=== PATIENT | male | born 1940 | race Caucasian/White ===

== ENCOUNTER → 2017-06-11 11:49 | Day surgery (SDC) | payer MEDICARE, BC ==
[~2017-06-11 11:49] MED LIST: Diazepam TAB(*) 5 MG ONE; Lidocaine 1% INJ* 10 MG/ML 30 ML SDV ONE; Midazolam* 1 MG/ML 10 ML VIAL (10 MG) ONE; ceFAZolin 2 GM in NS 0.9% 100 ml IVPB ONE; ceFAZolin VIAL 1 GM in NS *SYRINGE * * 10 ML ONE; fentaNYL* 50 MCG/ML 2 ML VIAL (100 MCG VIAL) ONE
[2017-06-11 15:08] VITALS: BP 146/77
--- NOTE | 2017-06-12 23:01 | OP ---
CC: Dr. Villagomez * DATE OF OPERATION: 06/11/17 - [facility] CATH DATE OF : 36 SURGEON: Cali Alcala MD ANESTHESIA: Local anesthesia with conscious sedation. PRE-OP DIAGNOSES: Cardiomyopathy, ICD at elective replacement indicator. POST-OP DIAGNOSES: Cardiomyopathy, ICD at elective replacement indicator. OPERATIVE PROCEDURE: Single-chamber ICD generator change. ESTIMATED BLOOD LOSS: Nil. COMPLICATIONS: None. INDICATIONS: The patient is a 77-year-old gentleman with a history of cardiomyopathy, history of ventricular tachy-cardia. He is status post pacemaker and ICD implantation in the past. He has reached elective replacement indicator, generator change is recommended. DESCRIPTION OF PROCEDURE: The patient was brought to the procedure room in a fasting state. Informed consent had been obtained prior to the procedure. All labs had been reviewed. His left deltopectoral area was cleaned and draped in usual fashion. 1% lidocaine was used for local anesthesia. A 4.5 cm incision was made at the superior aspect of the ICD and blunt dissection was carried down to the fibrous sheath. The fibrous sheath was opened and the ICD was removed from the pocket. The ICD was detached from the ventricular lead. The pocket was flushed with antibiotic-infused normal saline. A new generator was attached to the ICD lead. The generator was placed in the pocket and the surgical incision was closed with 3 layers. The patient tolerated the procedure well with no complications. The explanted device is a [employer] model ES7349, serial #[id number]. The new implanted device is a [employer] model WI2622, serial #[id number]. [id number]/[facility] #: [id number] [facility]
== END | disposition home or self-care (01) ==
LOC: CHICATH 11:49
PROVIDERS: ATTEND Specialist
DX: Z45.02 Encounter for adjustment and management of automatic implantable cardiac defibrillator (principal); Z95.810 Presence of automatic (implantable) cardiac defibrillator; I25.5 Ischemic cardiomyopathy; I47.2 Ventricular tachycardia; E78.00 Pure hypercholesterolemia, unspecified; G47.33 Obstructive sleep apnea (adult) (pediatric); I10 Essential (primary) hypertension; R06.02 Shortness of breath
CPT/HCPCS: 33262; 88300; 99156; 99157; A9270-GY; C1722; J0690; J2250; J3010

== ENCOUNTER 2019-02-03 15:01 | Emergency (ER) | payer MEDICARE, BC ==
[2019-02-03] MEDS ORDERED: NS 0.9% 1000 ML** 2,000 ML IV ONE (15:23)
--- NOTE | 2019-02-03 15:23 | ED ---
HPI Cardiac - HPI Summary HPI Summary: This pt is an 79 y/o [facility] for low blood pressure. reports pt is currently being treated for C. diff for the last 2 weeks with Vancomycin. GI MEDICAL RECEPTIONIST, Tanya Segura, noticed pt's blood pressure was low at the office around 74/50 and sent pt to the ED. states pt's diarrhea has decreased and it's not watery like it was before. Per pt had 10 episodes of diarrhea yesterday and today has only had 2 episode so far. Pt reports he feels lightheaded and becomes dizzy when standing up. Per , pt describes pt gets "wobbly." Additionally pt notes some SOB. Denies fever, chills, abd pain, chest pain. Pt lives at home with . - History of Current Complaint Chief Complaint: EDWeakness Stated Complaint: LOW BLOOD PRESSURE PER PT Time Seen by Provider: 02/03/19 15:16 Hx Obtained From: Patient, Family/Technology Applications Engineer - Onset/Duration: Started Hours Ago, Still Present Timing: Lasting Hours Current Severity: None Pain Intensity: 0 Pain Scale Used: 0-10 Numeric Aggravating Factor(s): Nothing Alleviating Factor(s): Nothing Associated Signs and Symptoms: Positive: Dizziness, Shortness of Breath, Lightheadedness, Other: - POSITIVE: diarrhea, low blood pressure.. Negative: Chest Pain, Fever, Chills, Abdominal Pain - Allergy/Home Medications Allergies/Adverse Reactions: Allergies Allergy/AdvReac Type Severity Reaction Status Date / Time No Known Allergies Allergy Verified 07/30/14 08:19 Home Medications: Home Medications Multivitamins/Minerals TAB* [Theragran/minerals TAB*] 1 tab PO DAILY 02/03/19 [ History Confirmed 02/03/19] Nitroglycerin TAB 0.4 MG* 0.4 mg SL Q5M PRN 02/03/19 [History Confirmed 02/03/19 ] Potassium Chlor TAB* [Klor Con ER TAB*] 20 meq PO DAILY 02/03/19 [History Confirmed 02/03/19] Sacubitril/Valsartan 49/51(NF) [Entresto 49/51(NF)] 1 tab PO BID 02/03/19 [ History Confirmed 02/03/19] Spironolactone [Aldactone 25 MG-] 25 mg PO DAILY 02/03/19 [History Confirmed ] Torsemide TAB* [Demadex*] 20 mg PO SUTUTHSA 02/03/19 [History Confirmed 02/03/19 ] Torsemide TAB* [Demadex*] 30 mg PO MOWEFR 02/03/19 [History Confirmed 02/03/19] PMH/Surg Hx/FS Hx/Imm Hx Endocrine/Hematology History: Denies: Hx Diabetes Cardiovascular History: Reports: Hx Angina, Hx Atrial Fibrillation, Hx Auto Implanted Cardiovert Defib, Hx Coronary Artery Disease, Hx Hypercholesterolemia , Hx Hypertension, Hx Myocardial Infarction, Hx Pacemaker/ICD Denies: Hx Valvular Heart Disease, Other Cardiovascular Problems/Disorders Respiratory History: Reports: Hx Sleep Apnea - current CPAP user, Other Respiratory Problems/Disorders - ex-smoker Denies: Hx Asthma, Hx Chronic Obstructive Pulmonary Disease (COPD) GI History: Reports: Hx Gastroesophageal Reflux Disease Sensory History: Reports: Hx Contacts or Glasses - Reading Denies: Hx Hearing Aid Opthamlomology History: Reports: Hx Contacts or Glasses - Reading - Cancer History Cancer Type, Location and Year: basal cell CA left heel-removed - Surgical History Surgery Procedure, Year, and Place: Pacemaker-defib placement 1999. Left heel cancer removed Infectious Disease History: No Infectious Disease History: Denies: Hx Clostridium Difficile, Hx Hepatitis, Hx Human Immunodeficiency Virus (HIV), Hx of Known/Suspected MRSA, Hx Shingles, Hx Tuberculosis, Hx Known/ Suspected VRE, Hx Known/Suspected VRSA, History Other Infectious Disease, Traveled Outside the [place] in Last 30 Days - Family History Known Family History: Positive: Cardiac Disease - Father with CAD Family History: Father with Alzheimer's disease. - Social History Alcohol Use: Daily Alcohol Amount: 1-2 drinks liquor per day Substance Use Type: Reports: None Smoking Status (MU): Former Smoker Type: Cigarettes Review of Systems Negative: Fever, Chills Negative: Chest Pain Positive: Shortness Of Breath Positive: Diarrhea. Negative: Abdominal Pain Neurological: Other - POSITIVE: lightheadedness All Other Systems Reviewed And Are Negative: Yes Physical Exam - Summary Physical Exam Summary: VITAL SIGNS: Reviewed. GENERAL: Patient is a well-developed and nourished male who is lying comfortable in the stretcher. Patient is not in any acute respiratory distress. HEAD AND FACE: Bruising under right eye. EYES: PERRLA, EOMI x 2, No injected conjunctiva, no nystagmus. EARS: Hearing grossly intact. Ear canals and tympanic membranes are within normal limits. MOUTH: Oropharynx within normal limits. NECK: Supple, trachea is midline, no adenopathy, no JVD, no carotid bruit, no c- spine tenderness, neck with full ROM. CHEST: Symmetric, no tenderness at palpation LUNGS: Clear to auscultation bilaterally. No wheezing or crackles. CVS: Regular rate and rhythm, S1 and S2 present, no murmurs or gallops appreciated. Patient with hypotension. ABDOMEN: Soft, non-tender. No signs of distention. No rebound no guarding, and no masses palpated. Bowel sounds are normal. EXTREMITIES: FROM in all major joints, no edema, no cyanosis or clubbing. NEURO: Alert and oriented x 3. No acute neurological deficits. Speech is normal and follows commands. SKIN: Dry and warm Triage Information Reviewed: Yes Vital Signs On Initial Exam: Initial Vitals Temp Pulse Resp BP Pulse Ox 97.8 F 69 20 83/49 100 02/03/19 15:03 02/03/19 15:03 02/03/19 15:03 02/03/19 15:03 02/03/19 15:03 Vital Signs Reviewed: Yes Diagnostics - Vital Signs Vital Signs Temp Pulse Resp BP Pulse Ox 02/03/19 15:03 97.8 F 69 20 83/49 100 - Laboratory Result Diagrams: 02/03/19 15:45 02/03/19 15:45 Lab Statement: Any lab studies that have been ordered have been reviewed, and results considered in the medical decision making process. - Radiology Chest XR Radiology Interpretation Completed By: Radiologist Summary of Radiographic Findings: IMPRESSION: #. Interstitial fibrosis. #. No superimposed acute cardiopulmonary process evident. Dr. Quan has reviewed this report. - EKG 15:48 Cardiac Rate: NL - at 66 bpm Summary of EKG Findings: Pacemaker rhythm at 66 bpm with atrial flutter. Re-Evaluation - Re-Evaluation First Eval Re-Evaluation Time: 18:43 Change: Improved Comment: Discussed with pt and . Pt would like to be discharged home. Pt was ambulated in the ED without any difficulties and without dizziness. His repeat blood pressure is 114/67. Disposition - Course Assessment/Plan: Blood work without any significant abnormality except for slight anemia, INR is 1.65, PTT of 40.1. Sodium 134, chloride 99, BUNs 41 and creatinine 1.41. Total CPK is 289, CRP is 8.1. BNP 146. Initially the patient was slightly hypotensive therefore the patient was given 2 L of IV fluids. After the fluids were given the patients blood pressure increased to 114/67. He reports as his diarrhea has resolved and now he has only pasty bowel movements but they are not watery. He also reports that his dizziness has resolved with hydration. At this point I ambulated the patient in the ER and he did not have any dizziness. We did orthostatics which are normal. I discussed my physical exam and findings with the patient and the patients and they agree for the patient to be discharged home with follow-up from his primary care physician. They were given instructions to return to the emergency department if the symptoms return. They understand and agree. - Diagnoses Provider Diagnoses: Dehydration, Hypotension Discharge ED - Sign-Out/Discharge Documenting (check all that apply): Patient Departure - Discharge home Patient Received Moderate/Deep Sedation with Procedure: No - Discharge Plan Condition: Stable Disposition: HOME Patient Education Materials: Dehydration (ED), Hypotension (ED) Referrals: Andre Henry MD [Primary Care Provider] - Additional Instructions: Please follow up with your primary care provider in 2-3 days. RETURN TO THE EMERGENCY DEPARTMENT FOR ANY WORSENING OR NEW SYMPTOMS. - Billing Disposition and Condition Condition: STABLE Disposition: Home - Attestation Statements Document Initiated by Ozzie: Yes Documenting Scribe: Tamie Ingram Provider For Whom Ozzie is Documenting (Include Credential): Andre Quan MD Scribe Attestation: Tamie Esparza, scribed for Andre Quan MD on 02/03/19 at 2141. Scribe Documentation Reviewed: Yes Provider Attestation: The documentation as recorded by the Tamie marlow accurately reflects the service I personally performed and the decisions made by me, Andre Quan MD Status of Scribe Document: Viewed
--- OUTSIDE RECORDS SUMMARY | 2019-02-03 15:47 | XMS REPORT | Continuity of Care Document ---
:1940 External Reference #:[id number] Author Name Charla Leigh N.P. (transmitted by agent of provider Reema Palomino) Address [address] [place] [address] Care Team Providers Name Role Phone Flaco Funk MD - Care Team Information [employer] [phone] [facility]-Micrographic Surgery Marco Antonio Denise MD - Ophthalmology Care Team Information [employer] [phone] Luis Quiros MD - Plastic and Care Team Information [employer] [phone] Reconstructive Surgery Problems Active Problems Provider Date Coronary arteriosclerosis Hong Villagomez M.D. Onset: 09/25/2002 Essential hypertension Hong Villagomez M.D. Onset: 10/27/2002 Mixed hyperlipidemia Andre Henry M.D. Onset: 03/21/2011 Left lower quadrant pain Andre Henry M.D. Onset: 12/04/2011 Automatic implantable cardiac Hong Villagomez M.D. Onset: 01/26/2012 defibrillator in situ Difficulty breathing Hong Villagomez M.D. Onset: 01/26/2012 Benign essential hypertension Andre Henry M.D. Onset: 08/16/2012 Obstructive sleep apnea syndrome Hong Villagomez M.D. Onset: 09/25/2013 Pure hypercholesterolemia Hong Villagomez M.D. Onset: 09/25/2013 Benign localized hyperplasia of Andre Henry M.D. Onset: 02/26/2014 prostate Benign prostatic hypertrophy without Andre Henry M.D. Onset: 03/31/2015 outflow obstruction Needs influenza immunization Teresita Tolbert DNP, RN, Onset: 02/22/2016 [facility] Chronic ischemic heart disease Andre Henry M.D. Onset: 05/16/2016 Social History Type Date Description Comments Sex Unknown Tobacco Use Start: Unknown Quit 1989; 2ppd for 30 yrs. ETOH Use Currently consumes alcohol ETOH Use Consumed 1 Alcoholic Beverage Per Day Tobacco Use Start: Unknown End: Patient is a former smoked for about 40 Unknown smoker yrs;smoked about 2 ppd Recreational Drug Use Denies Drug Use Smoking Status Reviewed: 01/06/19 Patient is a former smoked for about 40 smoker yrs;smoked about 2 ppd Exercise Type/Frequency Does not exercise Allergies, Adverse Reactions, Alerts Description No Known Drug Allergies Medications Active Medications SIG Qnty Indications Ordering Provider Date Demadex 3 tabs by mouth 60tabs I50.9 Charla Leigh, 10/29/2018 10mg Tablets mon, wed, fri N.P. and 2 tabs by mouth tu, valerie, sat, sun. Oxygen 2 L nc at hs 1units R06.00 Charla Leigh, 10/29/2018 Misc N.P. Metoprolol Succinate 1 by mouth 180tabs Hong Humphrey 04/25/2018 ER twice a day Namrata Villagomez 100mg Tablets ER 24HR Aldactone 1 by mouth 90tabs I25.5 Hong Humphrey 04/09/2018 25mg Tablets every day Namrata Villagomez Eliquis take 1 by mouth 180tabs I48.2 Charla Leigh, 02/19/2018 5mg Tablets twice a day N.P. Aspirin 81 Low Dose 1 by mouth 90units Charla Leigh, 02/19/2018 81mg every day N.P. Chewtabs Multivitamin Adults 1 tablet daily 30tabs E56.9 Cecy Mccoy, 12/04/2017 50+ MD Adlt 50+ Tablets Entresto 1 tab by mouth 60tabs I25.5 Charla Leigh, 07/25/2017 49-51mg Tablets twice daily N.P. Magnesium Oxide 1 tablet by 30caps Hong Humphrey 03/31/2014 400mg mouth bid Namrata Villagomez Capsules Nitrostat one sl q5min up 1bgaviota Andre MoraJulio Henry, 11/22/2012 0.4mg Tablets to 3 doses as MCain Sub needed Atorvastatin Calcium 1 by mouth 90tabs Hong Humphrey 40mg every day Namrata Villagomez Tablets History Medications Nitro-Dur 1 patch every day 30units I25.5 Hong Humphrey 10/29/2018 - on in the Namrata Villagomez 11/12/2018 0.1mg/HR Patches morning, off at 24HR night Medications Administered in Office Medication SIG Qnty Indications Ordering Provider Date Inj, Regadenoson, 0.1 MG Cali Alcala M.D. 07/31/2014 Injection Inj, Regadenoson, 0.1 MG FREDERIC Silverman 07/31/2014 Injection Technetium TC 99M TetrofosmCali christianson M.D. 07/31/2014 Per Unit Dose Up To 40 Millicuries Injection Technetium TC 99M TetrofosmMarissa christianson PA 07/31/2014 Per Unit Dose Up To 40 Millicuries Injection Immunizations CPT Code Status Date Vaccine Lot # 29089 Given 03/12/2018 Fluzone High Dose 48670 Given 05/16/2016 Pneumococcal Conjugate Vaccine 13 Valent For [id number] Intramuscular Use 42531 Given 02/22/2016 Influenza Virus Vaccine, Quadrivalent, Split, [id number] Preservative Free 62394 Given 04/02/2015 Influenza Virus Vaccine, Quadrivalent, Split, [id number] Preservative Free 38755 Given 02/26/2014 Flu Vaccine Split Virus Preservative Free For [id number] Indiv 3Yr Older 98531 Given 02/24/2013 Flu Vaccine Split Virus Preservative Free For [id number] Indiv 3Yr Older 40457 Given 08/16/2012 Pneumonia Vaccine [id number] 71813 Given 08/16/2012 Tdap - Tetanus/Diptheria/Acellular Pertussis [id number] Q2037 Given 02/17/2012 Fluvirin Im 3Yrs And Older [id number] Given 03/21/2011 Fluzone Vaccine [id number] 05857 Given 02/21/2008 Flu Vac (History By Patient> 57518 Given 02/21/2008 Influenza Virus 3Yrs & Over 50980 Given 02/21/2008 Influenza Virus 3Yrs & Over Vital Signs Date Vital Result Comment 01/06/2019 11:55am Height 70 inches 5'10" Weight 185.00 lb per pt at home Heart Rate 78 /min radial, regular BP Systolic Sitting 116 mmHg Ra, reg cuff BP Diastolic Sitting 66 mmHg Ra, reg cuff BP Systolic Standing 101 mmHg Ra, reg cuff BP Diastolic Standing 62 mmHg Ra, reg cuff BMI (Body Mass Index) 26.5 kg/m2 Ejection Fraction 35%-40% echo 09/17/18 11/13/2018 9:41am Height 70 inches 5'10" Weight 195.12 lb with shoes Heart Rate 72 /min BP Systolic Sitting 112 mmHg Rue regular cuff BP Diastolic Sitting 70 mmHg Rue regular cuff BP Systolic Standing 110 mmHg Rue regular cuff BP Diastolic Standing 60 mmHg Rue regular cuff BMI (Body Mass Index) 28.0 kg/m2 Ejection Fraction 35-40% echocardiogram 09/16/2018 Results Test Date Facility Test Result H/L Range Note Comp Metabolic 11/13/2018 [facility] Sodium 138 mmol/L Normal 135-[address] [place] [address] [phone] Potassium 3.8 mmol/L Normal 3.5-5.0 Chloride 96 mmol/L Low 101-111 Co2 Carbon Dioxide 34 mmol/L High 22-32 Anion Gap 8 mmol/L Normal 2-11 Glucose 128 mg/dL High 70-100 Blood Urea Nitrogen 20 mg/dL Normal 6-24 Creatinine 0.93 mg/dL Normal 0.67-1.17 BUN/Creatinine Ratio 21.5 High 8-20 Calcium 9.3 mg/dL Normal 8.6-10.3 Total Protein 6.4 g/dL Normal 6.4-8.9 Albumin 3.4 g/dL Normal 3.2-5.2 Globulin 3.0 g/dL Normal 2-4 Albumin/Globulin Ratio 1.1 Normal 1-3 Total Bilirubin 1.00 mg/dL Normal 0.2-1.0 Alkaline Phosphatase 133 U/L High 34-104 Alt 10 U/L Normal 7-52 Ast 19 U/L Normal 13-39 Egfr Non- 78.2 >60 Egfr 94.6 >60 1 Laboratory 11/13/2018 [facility] B-Type 518 pg/mL High <=100 test finding [address] [place] [address] Peptide BNP [phone] Laboratory 09/09/2018 [facility] B-Type 378 pg/mL High <=100 2 test finding [address] [place] [address] Peptide BNP [phone] CBC Auto Diff 09/09/2018 [facility] White Blood 3.7 Normal 3.5 -10.[address] Count 10^3/[place] [address] [phone] Red Blood Count 4.21 10^6/uL Normal 4.18-5.48 Hemoglobin 15.2 g/dL Normal 14.0-18.0 Hematocrit 46 % Normal 36-46 Mean Corpuscular Volume 109 fL High 80-94 Mean Corpuscular Hemoglobin 36 pg High 27-31 Mean Corpuscular HGB Conc 33 g/dL Normal 31-36 Red Cell Distribution Width 17 % High 10.5-15 Platelet Count 167 10^3/uL Normal 150-450 Mean Platelet Volume 9.1 fL Normal 7.4-10.4 Abs Neutrophils 2.3 10^3/uL Normal 1.5-7.7 Abs Lymphocytes 0.9 10^3/uL Low 1.0-4.8 Abs Monocytes 0.4 10^3/uL Normal 0-0.8 Abs Eosinophils 0.1 10^3/uL Normal 0-0.6 Abs Basophils 0 10^3/uL Normal 0-0.2 Abs Nucleated RBC 0 10^3/uL Granulocyte % 62.7 % Lymphocyte % 24.6 % Monocyte % 10.0 % Eosinophil % 1.6 % Basophil % 1.1 % Nucleated Red Blood Cells % 0 Comp Metabolic 09/09/2018 [facility] Sodium 140 mmol/L Normal 135-[address] [place] [address] [phone] Potassium 3.8 mmol/L Normal 3.5-5.0 Chloride 101 mmol/L Normal 101-111 Co2 Carbon Dioxide 33 mmol/L High 22-32 Anion Gap 6 mmol/L Normal 2-11 Glucose 82 mg/dL Normal 70-100 Blood Urea Nitrogen 12 mg/dL Normal 6-24 Creatinine 0.69 mg/dL Normal 0.67-1.17 BUN/Creatinine Ratio 17.4 Normal 8-20 Calcium 9.3 mg/dL Normal 8.6-10.3 Total Protein 6.5 g/dL Normal 6.4-8.9 Albumin 3.4 g/dL Normal 3.2-5.2 Globulin 3.1 g/dL Normal 2-4 Albumin/Globulin Ratio 1.1 Normal 1-3 Total Bilirubin 1.10 mg/dL High 0.2-1.0 Alkaline Phosphatase 171 U/L High 34-104 Alt 25 U/L Normal 7-52 Ast 40 U/L High 13-39 Egfr Non- 110.3 >60 Egfr 133.5 >60 3 1 Because ethnic data is not always readily available, this report includes an eGFR for both -Americans and non- Americans. The National Kidney Disease Education Program (NKDEP) does not endorse the use of the MDRD equation for patients that are not between the ages of 18 and 70, are , have extremes of body size, muscle mass, or nutritional status, or are non- or non-. According to the National Kidney Foundation, irrespective of diagnosis, the stage of the disease is based on the level of kidney function: Stage Description GFR(mL/min/1.73 m(2)) 1 Kidney damage with normal or decreased GFR 90 2 Kidney damage with mild decrease in GFR 60-89 3 Moderate decrease in GFR 30-59 4 Severe decrease in GFR 15-29 5 Kidney failure <15 (or dialysis) 2 Sunday 3 Because ethnic data is not always readily available, this report includes an eGFR for both -Americans and non- Americans. The National Kidney Disease Education Program (NKDEP) does not endorse the use of the MDRD equation for patients that are not between the ages of 18 and 70, are , have extremes of body size, muscle mass, or nutritional status, or are non- or non-. According to the National Kidney Foundation, irrespective of diagnosis, the stage of the disease is based on the level of kidney function: Stage Description GFR(mL/min/1.73 m(2)) 1 Kidney damage with normal or decreased GFR 90 2 Kidney damage with mild decrease in GFR 60-89 3 Moderate decrease in GFR 30-59 4 Severe decrease in GFR 15-29 5 Kidney failure <15 (or dialysis) Procedures Date Code Description Status 12/16/2018 65906 Interrogation Implant Cardiovasc Monitor System Incl Completed Analysis Int 12/16/2018 17003 Interrogation Implant Cardiovasc Monitor System Incl Completed Analysis Int 12/16/2018 27725 Icd Eval With Inerative Adjustmt Dual Lead System Completed 12/16/2018 50609 Icd Eval With Inerative Adjustmt Dual Lead System Completed 10/30/2018 66073 Interrogation Implant Cardiovasc Monitor System Incl Completed Analysis Int 10/30/2018 33174 Interrogation Implant Cardiovasc Monitor System Incl Completed Analysis Int 10/30/2018 60628 Icd Eval With Inerative Adjustmt Dual Lead System Completed 10/30/2018 48479 Icd Eval With Inerative Adjustmt Dual Lead System Completed 10/29/2018 60587 EKG Tracing & Interpretation Completed 09/17/2018 74254 Icd Check Single,Dual Or Multiple In Person W/DR Incl Completed Heart Rhyth 09/17/2018 26559 Icd Check Single,Dual Or Multiple In Person W/DR Incl Completed Heart Rhyth 09/16/2018 74859 Icd Eval With Inerative Adjustmt Dual Lead System Completed 09/16/2018 66774 Icd Eval With Inerative Adjustmt Dual Lead System Completed 09/16/2018 05631 Interrogation Implant Cardiovasc Monitor System Incl Completed Analysis Int 09/16/2018 78945 Interrogation Implant Cardiovasc Monitor System Incl Completed Analysis Int 09/16/2018 37026 ECHO Transthoracic, Real-Time 2D With Doppler And Color Completed Flow 09/16/2018 45364 ECHO Transthoracic, Real-Time 2D With Doppler And Color Completed Flow 09/05/2018 94213 EKG Tracing & Interpretation Completed 08/28/2018 97832 Icd Eval With Iterative Adjustmt Multiple Lead System Completed 08/28/2018 74252 Icd Eval With Iterative Adjustmt Multiple Lead System Completed 08/22/2018 83312 Interrogation Implant Cardiovasc Monitor System Incl Completed Analysis Int 08/22/2018 19671 Interrogation Implant Cardiovasc Monitor System Incl Completed Analysis Int 08/22/2018 16003 Icd Eval With Iterative Adjustmt Multiple Lead System Completed 08/22/2018 40676 Icd Eval With Iterative Adjustmt Multiple Lead System Completed 06/04/2006 [id number] Colonoscopy Completed Medical Devices Description No Information Available Encounters Type Date Location Provider Dx Diagnosis Office Visit 11/13/2018 [facility] Charla Leigh, Z95.810 Presence of 10:00a N.P. automatic (implantable) cardiac defibrillator I25.5 Ischemic cardiomyopathy I50.9 Heart failure, unspecified R06.00 Dyspnea, unspecified I48.2 Chronic atrial fibrillation Office Visit 10/29/2018 [facility] Hong Humphrey Z95.810 Presence of 11:20a Cardiology Namrata Villagomez automatic (implantable) cardiac defibrillator I25.5 Ischemic cardiomyopathy I50.9 Heart failure, unspecified R06.00 Dyspnea, unspecified I48.2 Chronic atrial fibrillation Office Visit 09/13/2018 8:30a [facility] Charla SJulio Leigh, R06.09 Other forms of [employer] N.P. dyspnea I25.5 Ischemic cardiomyopathy Z95.810 Presence of automatic (implantable) cardiac defibrillator I50.9 Heart failure, unspecified I10 Essential (primary) hypertension Office Visit 09/05/2018 11:00a [facility] Charla S. I25.5 Ischemic Cardiology Foster, N.P. cardiomyopathy Z95.810 Presence of automatic (implantable) cardiac defibrillator I50.9 Heart failure, unspecified I10 Essential (primary) hypertension R06.00 Dyspnea, unspecified Office Visit 07/25/2018 3:00p [facility] Charla S. I48.2 Chronic atrial [employer] Foster, N.P. fibrillation I25.5 Ischemic cardiomyopathy Z95.810 Presence of automatic (implantable) cardiac defibrillator R94.31 Abnormal electrocardiogram [ECG] [EKG] I10 Essential (primary) hypertension E78.00 Pure hypercholesterolemia, unspecified Assessments Date Code Description Provider 01/06/2019 Z95.810 Presence of automatic (implantable) Charla S. Foster, N.P. cardiac defibrillator 01/06/2019 I25.5 Ischemic cardiomyopathy Charla S. Foster, N.P. 01/06/2019 I50.9 Heart failure, unspecified Charla S. Foster, N.P. 01/06/2019 I48.2 Chronic atrial fibrillation Charla S. Foster, N.P. 01/06/2019 R06.00 Dyspnea, unspecified Charla S. Foster, N.P. 12/16/2018 Z95.810 Presence of automatic (implantable) Hong Villagomez M.D. cardiac defibrillator 12/16/2018 Z95.810 Presence of automatic (implantable) [employer] Pacer Schedule cardiac defibrillator 12/16/2018 I25.5 Ischemic cardiomyopathy Hong Villagomez M.D. 12/16/2018 I25.5 Ischemic cardiomyopathy [employer]ca Pacer Schedule 11/13/2018 Z95.810 Presence of automatic (implantable) Charla S. Foster, N.P. cardiac defibrillator 11/13/2018 I25.5 Ischemic cardiomyopathy Charla S. Foster, N.P. 11/13/2018 I50.9 Heart failure, unspecified Charla S. Foster, N.P. 11/13/2018 R06.00 Dyspnea, unspecified Charla S. Foster, N.P. 11/13/2018 I48.2 Chronic atrial fibrillation Charla S. Foster, N.P. 10/30/2018 Z95.810 Presence of automatic (implantable) Hong Villagomez M.D. cardiac defibrillator 10/30/2018 Z95.810 Presence of automatic (implantable) Ica Pacer Schedule cardiac defibrillator 10/30/2018 I25.5 Ischemic cardiomyopathy Hong Villagomez M.D. 10/30/2018 I25.5 Ischemic cardiomyopathy Ica Pacer Schedule 10/30/2018 I50.9 Heart failure, unspecified Hong Villagomez M.D. 10/30/2018 I50.9 Heart failure, unspecified Ica Pacer Schedule 10/29/2018 Z95.810 Presence of automatic (implantable) Hong Villagomez M.D. cardiac defibrillator 10/29/2018 I25.5 Ischemic cardiomyopathy Hong Villagomez M.D. 10/29/2018 I50.9 Heart failure, unspecified Hong Villagomez M.D. 10/29/2018 R06.00 Dyspnea, unspecified Hong Villagomez M.D. 10/29/2018 I48.2 Chronic atrial fibrillation Hong Villagomez M.D. 09/17/2018 Z95.810 Presence of automatic (implantable) Hong Villagomez M.D. cardiac defibrillator 09/17/2018 Z95.810 Presence of automatic (implantable) [employer]ca Pacer Schedule cardiac defibrillator 09/16/2018 I25.5 Ischemic cardiomyopathy Hong Villagomez M.D. 09/16/2018 I50.9 Heart failure, unspecified Hong Villagomez M.D. 09/16/2018 I50.9 Heart failure, unspecified Ica Pacer Schedule 09/16/2018 Z95.810 Presence of automatic (implantable) Hong Villagomez M.D. cardiac defibrillator 09/16/2018 Z95.810 Presence of automatic (implantable) Ica Pacer Schedule cardiac defibrillator 09/16/2018 I25.5 Ischemic cardiomyopathy Hong Villagomez M.D. 09/16/2018 I25.5 Ischemic cardiomyopathy Ica Pacer Schedule 09/16/2018 I25.5 Ischemic cardiomyopathy Ica ECHO Schedule 09/13/2018 R06.09 Other forms of dyspnea Charla S. Foster, N.P. 09/13/2018 I25.5 Ischemic cardiomyopathy Charla S. Foster, N.P. 09/13/2018 Z95.810 Presence of automatic (implantable) Charla S. Foster, N.P. cardiac defibrillator 09/13/2018 I50.9 Heart failure, unspecified Charla S. Foster, N.P. 09/13/2018 I10 Essential (primary) hypertension Charla S. Foster, N.P. 09/05/2018 R06.09 Other forms of dyspnea Nichole Newton M.D. 09/05/2018 I25.5 Ischemic cardiomyopathy Charla S. Foster, N.P. 09/05/2018 Z95.810 Presence of automatic (implantable) Charla S. Foster, N.P. cardiac defibrillator 09/05/2018 I50.9 Heart failure, unspecified Charla S. Foster, N.P. 09/05/2018 I10 Essential (primary) hypertension Charla S. Foster, N.P. 09/05/2018 R06.00 Dyspnea, unspecified Charla S. Foster, N.P. 08/28/2018 I25.5 Ischemic cardiomyopathy Ica Pacer Schedule 08/28/2018 Z95.810 Presence of automatic (implantable) Ica Pacer Schedule cardiac defibrillator 08/28/2018 Z45.02 Encounter for adjustment and Hong Villagomez M.D. management of automatic implantable cardiac defibrillator 08/28/2018 Z45.02 Encounter for adjustment and Ica Pacer Schedule management of automatic implant 08/22/2018 I48.2 Chronic atrial fibrillation Ica Pacer Schedule 08/22/2018 I25.5 Ischemic cardiomyopathy Hong Villagomez M.D. 08/22/2018 I25.5 Ischemic cardiomyopathy Ica Pacer Schedule 08/22/2018 Z95.810 Presence of automatic (implantable) Hong Villagomez M.D. cardiac defibrillator 08/22/2018 Z95.810 Presence of automatic (implantable) Ica Pacer Schedule cardiac defibrillator 08/22/2018 I50.9 Heart failure, unspecified Hong Villagomez M.D. 08/22/2018 I50.9 Heart failure, unspecified Ica Pacer Schedule 07/25/2018 I48.2 Chronic atrial fibrillation Charla S. Reese, N.P. 07/25/2018 I25.5 Ischemic cardiomyopathy Charla SJulio Leigh, N.P. 07/25/2018 Z95.810 Presence of automatic (implantable) Charla S. Reese, N.P. cardiac defibrillator 07/25/2018 R94.31 Abnormal electrocardiogram [ECG] [EKG] Charla S. Reese, N.P. 07/25/2018 I10 Essential (primary) hypertension Charla S. Reese, N.P. 07/25/2018 E78.00 Pure hypercholesterolemia, unspecified Charla S. Foster, N.P. Plan of Treatment Future Appointment(s):01/31/2019 10:00 am - [place] [facility] Schedule at [facility]02/18/2019 1:20 pm - Hong Villagomez M.D. at [facility] - Charla S. Reese, N.P.Z95.810 Presence of automatic (implantable) cardiac bockweuuqfyhsJ51.5 Ischemic cardiomyopathyNew Orders:Echocardiogram, Limited Study, Scheduled: 01/31/19Follow up:OV M 02/2019 as phzxnzixdM43.9 Heart failure, xrmgeuzskicJ83.2 Chronic atrial wxufknebsvelL64.00 Dyspnea, unspecifiedRecommendations:Increase torsemide to 3 tabs Mon, Wed, Fri and 2 tabs the remaining days. Have labs drawn in 7-10 days. Functional Status Description No Information Available Mental Status Description No Information Available Referrals Description No Information Available
--- OUTSIDE RECORDS SUMMARY | 2019-02-03 15:47 | XMS REPORT | Continuity of Care Document ---
:1940 External Reference #:[id number] Author Name Tanya Segura PA-C Address [address] [place] [address] Problems Active Problems Provider Date Chronic ischemic heart disease KELBY Epperson Onset: 01/04/2015 Essential hypertension KELBY Epperson Onset: 01/04/2015 Diarrhea Tanya Segura PA-C Onset: 01/16/2019 Hemorrhage of rectum and anus Tanya Segura PA-C Onset: 01/16/2019 Social History Type Date Description Comments Sex Unknown Tobacco Use Start: Unknown End: Unknown Patient is a former smoker Smoking Status Reviewed: 01/16/19 Patient is a former smoker Allergies, Adverse Reactions, Alerts Description No Known Drug Allergies Medications Active Medications SIG Qnty Indications Ordering Date Provider Vancomycin HCL 1 tablet by 56caps Adán Romero, DO 01/17/2019 250mg mouth four Capsules times a day for 14 days Anucort-HC [address] of 28units Adán Romero, DO 01/16/2019 25mg Suppository rectum twice a day for 2 weeks Atorvastatin Calcium Unknown 40mg Tablets Magnesium Oxide 1 By Mouth Unknown 400mg Daily Tablets Metoprolol Succinate ER 1 by mouth bid Unknown 100mg Tablets ER 24HR Aspirin 1 by mouth Unknown 81mg Tablets DR every day Spironolactone Daily Unknown 25mg Tablets Eliquis bid Unknown 5mg Tablets Oxygen 2 Liters AT Unknown Night Torsemide 3 Tabs Unknown 10mg Tablets Mon-Wed-Fri Other Days Take 2 Tabs. Entresto bid Unknown 49-51mg Tablets Immunizations Description No Information Available Vital Signs Date Vital Result Comment 01/16/2019 2:00pm Height 70 inches 5'10" Weight 190.00 lb BP Systolic 103 mmHg BP Diastolic 59 mmHg Heart Rate 65 /min BMI (Body Mass Index) 27.3 kg/m2 03/09/2015 10:03am Height 70 inches 5'10" Weight 234.00 lb BMI (Body Mass Index) 33.6 kg/m2 Results Test Date Facility Test Result H/L Range Note Laboratory test 01/17/2019 [facility] C Difficile PCR SEE RESULT 1, 2 finding BELOW Stool Culture <pending> O&P Ova & Parasites Screen <pending> Fecal Lactoferrin (Stool WBC) <pending> CBC Auto Diff 01/16/2019 [facility] White Blood Count 7.0 10^3/uL Normal 3.5- 10.8 Red Blood Count 3.82 10^6/uL Low 4.18-5.48 Hemoglobin 14.4 g/dL Normal 14.0-18.0 Hematocrit 42 % Normal 42-52 Mean Corpuscular Volume 109 fL High 80-94 3 Mean Corpuscular Hemoglobin 38 pg High 27-31 Mean Corpuscular HGB Conc 35 g/dL Normal 31-36 Red Cell Distribution Width 15 % Normal 10-15 Platelet Count 218 10^3/uL Normal 150-450 Mean Platelet Volume 9.1 fL Normal 7.4-10.4 Abs Neutrophils 5.1 10^3/uL Normal 1.5-7.7 Abs Lymphocytes 1.2 10^3/uL Normal 1.0-4.8 Abs Monocytes 0.7 10^3/uL Normal 0-0.8 Abs Eosinophils 0.0 10^3/uL Normal 0-0.6 Abs Basophils 0.0 10^3/uL Normal 0-0.2 Abs Nucleated RBC 0.0 10^3/uL Granulocyte % 72.2 % Lymphocyte % 17.2 % Monocyte % 9.4 % Eosinophil % 0.5 % Basophil % 0.7 % Nucleated Red Blood Cells % 0.1 Comp Metabolic Panel 01/16/2019 [facility] Sodium 139 mmol/L Normal 135-145 Potassium 3.6 mmol/L Normal 3.5-5.0 Chloride 95 mmol/L Low 101-111 Co2 Carbon Dioxide 34 mmol/L High 22-32 Anion Gap 10 mmol/L Normal 2-11 Glucose 111 mg/dL High 70-100 Blood Urea Nitrogen 25 mg/dL High 6-24 Creatinine 1.16 mg/dL Normal 0.67-1.17 BUN/Creatinine Ratio 21.6 High 8-20 Calcium 9.6 mg/dL Normal 8.6-10.3 Total Protein 6.5 g/dL Normal 6.4-8.9 Albumin 3.5 g/dL Normal 3.2-5.2 Globulin 3.0 g/dL Normal 2-4 Albumin/Globulin Ratio 1.2 Normal 1-3 Total Bilirubin 1.80 mg/dL High 0.2-1.0 Alkaline Phosphatase 125 U/L High 34-104 Alt 9 U/L Normal 7-52 Ast 18 U/L Normal 13-39 Egfr Non- 60.4 >60 Egfr 73.1 >60 4 Laboratory test finding 01/16/2019 [facility] Magnesium 1.9 mg/dL Normal 1.9- 2.7 Erythrocyte Sed Rate 58 mm/Hr High 0-19 C Reactive Protein 15.85 mg/L High <8.01 CMP And Lipid 01/14/2019 [facility] Misc Other Test <pending> CBC W/Auto 01/14/2019 [facility] White Blood Count <pending> Differential(!) Ser Auto CNT RBC Red Blood Count <pending> Hemoglobin Blood <pending> Hematocrit <pending> MCV (Corpuscular Volume) <pending> MCH (Corpuscular Hemoglobin) <pending> MCHC (Corpuscular Hemog Conc) <pending> RDW <pending> Platelet Count Blood Auto CNT <pending> MPV <pending> Lymph% <pending> Wells% <pending> Neutrophil % <pending> Absolute Lymphocytes <pending> Absolute Monocytes <pending> Absolute Neutrophils <pending> CMP(!) 11/13/2018 [facility] Sodium(!) <pending> Potassium(!) <pending> Chloride Serum/Plasma(!) <pending> Carbon Dioxide Ser/Plasm(!) <pending> BUN - Urea Nitrogen(!) <pending> Calcium Ser/Plasma Mass/Vol(!) <pending> Creatinine Serum Mass/Vol(!) <pending> Glucose Serum(!) <pending> BUN/Creatinine Ratio(!) <pending> Albumin Serum/Plasma(!) <pending> Alkaline Phosphatase(!) <pending> Bilirubin Total Mass/Vol(!) <pending> Ast - Sgot <pending> Alt - SGPT <pending> Protein Total <pending> 1 [id number] 2 SEE RESULT BELOW Name: MAYKEL ANDERSON Jewel : [address]: Tanya DE LA GARZA Acct: [id number] Unit: [id number] AGE: 79 Location: [facility] Re01/17/19 SEX: M Status: REG REF SPEC: [id number] KATIA: 01/17/19-[address] [facility] [address]: Tanya DE LA GARZA REQ: [id number] RECD: 01/17/19 STATUS: COMP _ SOURCE: STOOL SPDESC: ORDERED: C. diff PCR, Stool Culture, Fecal Lactoferr, O P: Giar/Crypt COMMENTS: [id number] Verbal to ARNULFO Lewis by [id number] at 1355 on 01/17/19. Results read back accurately. Procedure Result Reported Site Stool Culture Final 01/19/19- 1052 ML Result No enteric pathogens isolated Testing for Salmonella, Shigella, Aeromonas, Plesiomonas, Yersinia and Campylobacter are included in a Stool Culture. Vibrio spp not routinely tested for in a stool culture. If testing is desired, please request specifically when placing test order. Sensitivities not routinely performed on stool isolates, as antibiotics may prolong the carriage rate of bacteria. Please contact the microbiology lab if sensitivities are required. Stool Specimen Description Final 01/17/19- 1256 ML Stool Color Brown Stool Form Nonformed Stool Consistency Liquid Shiga Toxin 1 2 Final 01/20/19- 1337 ML Organism 1 Negative Shiga Toxin 1 2 CONTINUED ON NEXT PAGE DEPARTMENT OF PATHOLOGY, [address] [place] [address] Oscar Hooper M.D. Director RADHA # [id number] Patient: MAYKEL ANDERSON [id number] (Continued) Specimen: [id number] Collected: 01/17/19 Received: 01/17/19 (Continued) Procedure Result Reported Site Shiga Toxin 1 2 Final (continued) 01/20/19- 1337 Immunochromatographic Assay C. difficile PCR Final 01/17/19- 1344 ML Organism 1 027 Presumptive NEGATIVE Organism 2 Toxigenic C.diff POSITIVE Fecal Lactoferrin (Stool WBC) Final 01/17/19- 1306 ML Fecal Lactoferrin Positive by Immunoassay TEST LIMITATIONS: Assay detects elevated levels of lactoferrin released from fecal leukocytes as a marker of intestinal inflammation. The test may not be appropriate in immunocompromised persons. Fecal samples from breast fed infants should not be used with this assay. O P: Giardia/Cryptospor Screen Final 01/17/19- 1449 ML Organism 1 Neg Cryptosporidium/Giardia Giardia and cryptosporidium antigen testing performed by enzyme immunoassay. If patient is immunocompromised or has traveled to or is from a developing country, a full ova and parasite exam with microscopic (OPMIC) is recommended. All samples will be held 21 days in case full ova and parasite testing is requested. Contact the Microbiology Department at [phone]. TEST LIMITATIONS: As with all diagnostic procedures, the results obtained should be used in conjunction with other clinical information available to the physician, including confirmation by another method. Negative results can occur in samples containing antigen below lower limits of detection of the assay. One negative specimen does not rule out the possibility of a parasitic infection. To improve detection it is recommended that three specimens be CONTINUED ON NEXT PAGE DEPARTMENT OF PATHOLOGY, [address] [place] [address] Oscar Hooper M.D. Director JUMANASHERYL # [id number] Patient: MAYKEL ANDERSON Jewel [id number] (Continued) Specimen: [id number] Collected: 01/17/19 Received: 01/17/19 (Continued) Procedure Result Reported Site O P: Giardia/Cryptospor Screen Final (continued) 01/17/19- 1449 collected on separate days over a period of not more than seven days. The use of colonic washes, aspirates or other diluted sample types has not been established and could affect the performance of the assay. Stool samples contaminated with an oily or particulate base (eg. Barium, mineral oil etc.) could interfere with the test and are not recommended. * ML - Main Lab . END OF REPORT DEPARTMENT OF PATHOLOGY, [address] [place] [address] Oscar Hooper M.D. Director [facility] # [id number] 3 Consistent with Previous Results Reported on 01/14/19. 4 Because ethnic data is not always readily [...] 5 Kidney failure <15 (or dialysis) Procedures Description No Information Available Medical Devices Description No Information Available Encounters Description No Information Available Assessments Date Code Description Provider 01/16/2019 K62.5 Hemorrhage of anus and rectum Tanya Segura PA-C 01/16/2019 R19.7 Diarrhea, unspecified Tanya Segura PA-C Plan of Treatment Future Appointment(s):02/03/2019 1:45 pm - Tanya Segura PA-C at [facility]01/16/2019 - FREDERIC Meraz- CK62.5 Hemorrhage of anus and ilgmpuB10.7 Diarrhea, unspecified Functional Status Description No Information Available Mental Status Description No Information Available Referrals Description No Information Available
[2019-02-03 15:59] LABS: ABS Basophils 0.1 10^3/ul (0-0.2); ABS Eosinophils 0.1 10^3/ul (0-0.6); ABS Monocytes 0.6 10^3/ul (0-0.8); ABS Neutrophils 3.6 10^3/ul (1.5-7.7); Eosinophil % 1.2 %; Hematocrit 39 % (42-52); Hemoglobin 13.4 g/dL (14.0-18.0); Lymphocyte % 18.7 %; Mean Corpuscular HGB Conc 35 g/dL (31-36); Mean Corpuscular Hemoglobin 37 pg (27-31); Mean Corpuscular Volume 108 fL (80-94); Mean Platelet Volume 8.6 fL (7.4-10.4); Platelet Count 170 10^3/uL (150-450); Red Cell Distribution Width 14 % (10-15); White Blood Count 5.4 10^3/uL (3.5-10.8)
[2019-02-03 16:09] LABS: Activated Partial Thrombo Time 40.1 seconds (26.0-38.0); INR 1.65 (0.82-1.09)
[2019-02-03 16:11] LABS: Troponin I 0.02 ng/mL (<0.04)
[2019-02-03 16:42] LABS: Albumin 3.4 g/dL (3.2-5.2); Albumin/Globulin Ratio 1.1 (1-3); BUN/Creatinine Ratio 29.1 (8-20); C Reactive Protein 8.15 mg/L (<8.01); Calcium 9.5 mg/dL (8.6-10.3); EGFR African American 58.4 (>60); EGFR Non-African American 48.2 (>60); Globulin 3.2 g/dL (2-4); Potassium 4.9 mmol/L (3.5-5.0); Total Bilirubin 1.1 mg/dL (0.2-1.0); Total Protein 6.6 g/dL (6.4-8.9)
[2019-02-03 19:19] VITALS: BP 103/67
== END 2019-02-03 19:20 | disposition home or self-care (01) ==
LOC: ED 15:01
DX: I95.9 Hypotension, unspecified (principal); E86.0 Dehydration; R06.02 Shortness of breath; I48.91 Unspecified atrial fibrillation; I25.119 Atherosclerotic heart disease of native coronary artery with unspecified angina pectoris; E78.00 Pure hypercholesterolemia, unspecified; I10 Essential (primary) hypertension; I25.2 Old myocardial infarction; Z95.810 Presence of automatic (implantable) cardiac defibrillator; K21.9 Gastro-esophageal reflux disease without esophagitis; Z85.89 Personal history of malignant neoplasm of other organs and systems; Z87.891 Personal history of nicotine dependence; Z79.899 Other long term (current) drug therapy
CPT/HCPCS: 36415; 71045; 80053; 82550; 83605; 83690; 83880; 84484; 85025; 85610; 85730; 86140; 93005; 96360; 96361; 99283

== ENCOUNTER → 2019-03-24 09:17 | Day surgery (SDC) | payer MEDICARE, BC ==
--- NOTE | 2019-03-24 11:57 | BRIEFOPN ---
Brief Operative/Procedure Note - Operation Details Pre-Op Diagnosis: Large rt effusion Post-Op Diagnosis: Large rt effusion Procedures: Thoracentesis with U/S guidance on right side Surgeon(s)/Proceduralists: adrian Mccoy Anesthesia: Local with 1% lidocaine 5cc Estimated Blood Loss: None Findings: Dark yellow pleural fluid Specimen(s)/Culture(s) Description: Fluid for cytology, biochem, hematology Complications: None
--- NOTE | 2019-03-24 12:40 | PRO ---
THORACENTESIS REPORT: DATE OF PROCEDURE: 03/24/19 PROCEDURE PERFORMED: Ultrasound-guided thoracentesis on the right side. PRE-PROCEDURAL DIAGNOSIS: Large right pleural effusion. ANESTHESIA: Local anesthesia with 1% lidocaine 5 cc. DESCRIPTION OF PROCEDURE: Informed consent was obtained from the patient prior to the procedure after all the risks and benefits of the procedure were thoroughly explained. The patient was sitting up and leaning forward during the procedure. Portable ultrasound was utilized on the bedside to localize large amount to right pleural effusion, site was marked. CareFusion 8-Mohawk thoracentesis catheter was utilized for the procedure. Strict aseptic precautions and barrier techniques were utilized. Area was disinfected with chlorhexidine. Local anesthesia was achieved. Sterile drape was placed. Anesthesia was achieved with 1% lidocaine intradermally down into the pleural space taking precautions. A #11 scalpel blade was utilized to make stab incision to facilitate larger thoracentesis catheter. A CareFusion 8- [place]awk thoracentesis catheter was then inserted under manual suction taking precautions. Catheter was left in place and needle was removed. 1800 mL of dark yellow fluid was aspirated under manual suction. Catheter was then removed and sterile Band-Aid was applied. The patient tolerated the procedure well. The patient discharged home with appropriate instructions. Given large amount of fluid, no chest x-ray was done. Fluid was sent to the lab for cytology and biochemical examination. [id number]/[facility] #: [id number] ARINA
[2019-03-24 13:49] LABS: Body Fluid Source Pleural Fluid
[2019-03-24 14:33] LABS: Body Fluid Mono 9 %; Body Fluid Other Cells 2
[2019-03-25 16:06] LABS: Fluid Type, Protein, Total PLEURAL FLUID
[2019-03-25 16:09] LABS: Lactate Dehydrogenase, BF 106 U/L
== END | disposition home or self-care (01) ==
LOC: OR 09:17
PROVIDERS: ATTEND Internal Medicine
DX: J90 Pleural effusion, not elsewhere classified (principal); I42.9 Cardiomyopathy, unspecified; Z95.0 Presence of cardiac pacemaker; I48.91 Unspecified atrial fibrillation; I25.10 Atherosclerotic heart disease of native coronary artery without angina pectoris; I25.2 Old myocardial infarction; E78.5 Hyperlipidemia, unspecified; G47.33 Obstructive sleep apnea (adult) (pediatric); Z79.01 Long term (current) use of anticoagulants; E78.2 Mixed hyperlipidemia; I10 Essential (primary) hypertension; Z87.891 Personal history of nicotine dependence
CPT/HCPCS: 32554; 36415; 76604; 83615; 83986; 84157; 87070; 87205; 88112; 88184; 88185; 88187; 88188; 88189; 89051

== ENCOUNTER → 2019-05-26 10:41 | Day surgery (SDC) | payer MEDICARE, BC ==
--- NOTE | 2019-05-26 12:52 | BRIEFOPN ---
Brief Operative/Procedure Note - Operation Details Pre-Op Diagnosis: rt pleural effusion Post-Op Diagnosis: Rt pl effusion Procedures: Thoracentesis on rt side with U/S guidance Surgeon(s)/Proceduralists: Cecy Mccoy Anesthesia: Local with 1% lidocaine 5cc Estimated Blood Loss: None Findings: Dark yellow/brown fluid- 1250cc Specimen(s)/Culture(s) Description: Cytology, biochem, hematology, micro Complications: None
[2019-05-26 13:51] VITALS: BP 135/67
[2019-05-26 14:33] LABS: Body Fluid Source Pleural Fluid
[2019-05-26 16:10] LABS: Body Fluid Mono 9 %
--- NOTE | 2019-05-26 20:55 | PRO ---
THORACENTESIS REPORT: DATE OF PROCEDURE: 05/26/19 - [facility] PROCEDURE PERFORMED: Ultrasound-guided thoracentesis on the right side. PREPROCEDURAL DIAGNOSIS: Large right pleural effusion. ANESTHESIA: Local anesthesia with lidocaine 1%. DESCRIPTION OF PROCEDURE: Informed consent was obtained from the patient prior to the procedure after all the risks and benefits were thoroughly explained. The patient was sitting up and leaning forward during the procedure. All barrier techniques and strict aseptic precautions were followed. Portable ultrasound was utilized at bedside to localize the large right pleural effusion and the site was marked. The area was disinfected with chlorhexidine. 1% lidocaine was instilled intradermally subcutaneously down into the pleural space taking precautions. A #11 scalpel blade was used to make a stab incision. CareFusion 8-Wolof thoracentesis catheter was subsequently inserted under manual suction taking precautions. Catheter was left in place and the needle was removed. 1250 cc of dark yellow to brown fluid was removed under manual suction. The patient tolerated the procedure well. Catheter was then removed and sterile Band-Aid was applied. Fluid was sent to the lab for further testing. [id number]/[facility] #: [id number] MTDD
[2019-05-27 13:41] LABS: Fluid Type, Glucose PLEURAL
[2019-05-27 13:42] LABS: Lactate Dehydrogenase, BF 135 U/L
[2019-05-27 14:54] LABS: Fluid Type, Protein, Total PLEURAL
== END | disposition home or self-care (01) ==
LOC: OR 10:41
PROVIDERS: ATTEND Internal Medicine
DX: J90 Pleural effusion, not elsewhere classified (principal); R06.02 Shortness of breath; I25.10 Atherosclerotic heart disease of native coronary artery without angina pectoris; I50.9 Heart failure, unspecified; R60.0 Localized edema
CPT/HCPCS: 32554; 36415; 76604; 82945; 83615; 83986; 84157; 88112; 89051

== ENCOUNTER 2021-02-15 18:35 | Inpatient (IN) ==
[2021-02-15 20:50] LABS: ABS Lymphocytes 0.3 10^3/ul (1.0-4.8); ABS Monocytes 0.4 10^3/ul (0-0.8); ABS Neutrophils 3.7 10^3/ul (1.5-7.7); Hematocrit 40 % (42-52); Hemoglobin 13.7 g/dL (14.0-18.0); Lymphocyte % 7.5 %; Mean Corpuscular HGB Conc 34 g/dL (31-36); Mean Corpuscular Hemoglobin 38 pg (27-31); Mean Corpuscular Volume 111 fL (80-94); Mean Platelet Volume 7.9 fL (7.4-10.4); Nucleated Red Blood Cells % 0.1; Platelet Count 125 10^3/uL (150-450); Red Blood Count 3.57 10^6 /uL (4.18-5.48); Red Cell Distribution Width 14 % (10-15); White Blood Count 4.4 10^3/uL (3.5-10.8)
[2021-02-15 21:08] LABS: Rapid COVID-19 Molecular Undetected (Undetected)
[2021-02-15] MEDS ORDERED: Furosemide 40 mg/4 ml IV VIAL IV SLOW PU ONE (21:12)
[2021-02-15 21:19] LABS: Troponin I 0.05 ng/mL (<0.03)
[2021-02-15 21:37] LABS: ALT 15 U/L (7-52); AST 26 U/L (13-39); Albumin 3.4 g/dL (3.2-5.2); Alkaline Phosphatase 90 U/L (35-149); Anion Gap 11 mmol/L (2-11); Blood Urea Nitrogen 25 mg/dL (6-24); CO2 Carbon Dioxide 25 mmol/L (22-32); Calcium 9.5 mg/dL (8.6-10.3); Chloride 96 mmol/L (101-111); Globulin 3.3 g/dL (2-4); Glucose 111 mg/dL (70-100); Potassium 4.4 mmol/L (3.5-5.0); Sodium 132 mmol/L (135-145); Total Protein 6.7 g/dL (6.4-8.9)
[2021-02-15] MEDS ORDERED: Albuterol HFA INHALER 8 gm MDI INH PRN (21:47)
[2021-02-15 21:48] LABS: Alcohol, S < 13 mg/dL (<13)
[2021-02-15] MEDS ORDERED: Amoxicillin/Clavul 875/125 TAB (Augmentin 875 tab) PO SCH (23:00)
[2021-02-15] MEDS ORDERED: Iodixanol (CONTRAST) 320 MG/ML 100 ML SDV IV ONE (23:44)
[2021-02-16] MEDS: cefTRIAXone 1 gm/50 mL NS BAG 1 GM/50 ML BAG IVPB SCH ×2 (02:24→21:48)
[2021-02-16 03:34] LABS: ABS Lymphocytes 0.4 10^3/ul (1.0-4.8); ABS Monocytes 0.3 10^3/ul (0-0.8); ABS Neutrophils 3.2 10^3/ul (1.5-7.7); Hematocrit 38 % (42-52); Hemoglobin 13.2 g/dL (14.0-18.0); Lymphocyte % 9.5 %; Mean Corpuscular HGB Conc 35 g/dL (31-36); Mean Corpuscular Hemoglobin 39 pg (27-31); Mean Corpuscular Volume 110 fL (80-94); Mean Platelet Volume 7.5 fL (7.4-10.4); Nucleated Red Blood Cells % 0.1; Platelet Count 128 10^3/uL (150-450); Red Blood Count 3.42 10^6 /uL (4.18-5.48); Red Cell Distribution Width 14 % (10-15); White Blood Count 3.9 10^3/uL (3.5-10.8)
[2021-02-16 03:50] LABS: Anion Gap 6 mmol/L (2-11); Blood Urea Nitrogen 24 mg/dL (6-24); C Reactive Protein 127.44 mg/L (<8.01); CO2 Carbon Dioxide 28 mmol/L (22-32); Calcium 9.2 mg/dL (8.6-10.3); Chloride 96 mmol/L (101-111); Glucose 101 mg/dL (70-100); Magnesium 1.7 mg/dL (1.9-2.7); Sodium 130 mmol/L (135-145)
[2021-02-16 03:57] LABS: Troponin I 0.06 ng/mL (<0.03)
[2021-02-16 05:50] LABS: Urine Appearance Clear; Urine Bacteria Absent (Absent); Urine Bilirubin Negative (Negative); Urine Blood Negative (Negative); Urine Color Amber; Urine Glucose Negative (Negative); Urine Ketones Trace (Negative); Urine Nitrite Negative (Negative); Urine Protein 1+(30 mg/dL) (Negative); Urine Red Blood Cell Trace(0-2/hpf) (Absent); Urine Urobilinogen Negative (Negative); Urine White Blood Cell Trace(0-5/hpf) (Absent)
[2021-02-16 05:52] LABS: Urine Specific Gravity < 1.060 (1.002-1.030)
[2021-02-16 07:12] LABS: Troponin I 0.06 ng/mL (<0.03)
[2021-02-16] MEDS: Tiotropium Brom/Olodaterol MDI INH SCH (07:43)
[2021-02-16] MEDS ORDERED: Perflutren Lipid Microsphere 3 ML VIAL ONE (08:03)
[2021-02-16] MEDS ORDERED: Magnesium Sulfate IV 3 GM in NS 0.9% 100 ml BAG 100 ML IVPB ONE (14:31)
[2021-02-17 07:02] LABS: Hematocrit 39 % (42-52); Hemoglobin 13.7 g/dL (14.0-18.0); Mean Corpuscular HGB Conc 35 g/dL (31-36); Mean Corpuscular Hemoglobin 39 pg (27-31); Mean Corpuscular Volume 111 fL (80-94); Platelet Count 122 10^3/uL (150-450); Red Blood Count 3.51 10^6 /uL (4.18-5.48); Red Cell Distribution Width 13 % (10-15)
[2021-02-17 07:10] LABS: Calcium 9.4 mg/dL (8.6-10.3); Potassium 4.2 mmol/L (3.5-5.0)
[2021-02-17] MEDS: Tiotropium Brom/Olodaterol MDI INH SCH (08:07)
[2021-02-17] MEDS: cefTRIAXone 1 gm/50 mL NS BAG 1 GM/50 ML BAG IVPB SCH (20:30)
[2021-02-18 06:12] LABS: Calcium 9.6 mg/dL (8.6-10.3); Potassium 4.1 mmol/L (3.5-5.0)
[2021-02-18] MEDS ORDERED: Furosemide 40 mg/4 ml IV VIAL IV ONE (08:15)
[2021-02-18] MEDS: Tiotropium Brom/Olodaterol MDI INH SCH (08:47)
[2021-02-19 06:26] LABS: Hematocrit 41 % (42-52); Hemoglobin 14.1 g/dL (14.0-18.0); Mean Corpuscular HGB Conc 34 g/dL (31-36); Mean Corpuscular Hemoglobin 38 pg (27-31); Mean Corpuscular Volume 111 fL (80-94); Mean Platelet Volume 8.1 fL (7.4-10.4); Platelet Count 155 10^3/uL (150-450); Red Blood Count 3.69 10^6 /uL (4.18-5.48); Red Cell Distribution Width 13 % (10-15); White Blood Count 3.9 10^3/uL (3.5-10.8)
[2021-02-19 06:53] LABS: Calcium 9.6 mg/dL (8.6-10.3)
[2021-02-19] MEDS: Tiotropium Brom/Olodaterol MDI INH SCH (07:55)
[2021-02-19] MEDS: Furosemide 40 mg/4 ml IV VIAL IV SCH (08:33)
[2021-02-20] MEDS: Tiotropium Brom/Olodaterol MDI INH SCH (07:55)
[2021-02-20] MEDS: Furosemide 40 mg/4 ml IV VIAL IV SCH (08:23)
[2021-02-21] MEDS ORDERED: Hemorrhoidal OINT 1 TUBE PR PRN (05:01)
[2021-02-21] MEDS: Tiotropium Brom/Olodaterol MDI INH SCH (07:57)
[2021-02-21] MEDS: Furosemide 40 mg/4 ml IV VIAL IV SCH (09:22)
[2021-02-21 10:38] LABS: Calcium 9.7 mg/dL (8.6-10.3); Potassium 3.9 mmol/L (3.5-5.0)
[2021-02-21] MEDS ORDERED: Potassium Chloride LIQUID 20 MEQ/15 ML LIQUID PO ONE (10:50)
[2021-02-22] MEDS: Tiotropium Brom/Olodaterol MDI INH SCH (08:30)
[2021-02-23] MEDS: Tiotropium Brom/Olodaterol MDI INH SCH (09:30)
[2021-02-23 11:20] VITALS: BP 123/69
== END 2021-02-23 15:00 | disposition home or self-care (01) | DRG 196 ==
LOC: ED 18:35 → SUATTDRO 21:45 → OBSVTOIN 23:26 → INTOOBSV 23:26 → SUATTDRO 23:26 → MED 23:26 → MEDTELE 02-20 18:43
PROVIDERS: ADMIT Internal Medicine; ATTEND Student in an Organized Health Care Education/Training Program

== ENCOUNTER 2021-11-09 17:35 | Observation (INO) ==
[2021-11-09] MEDS ORDERED: NS 0.9% 1000 ml BAG 1,000 ML IV ONE (18:08)
[2021-11-09 18:23] LABS: ABS Eosinophils 0.2 10^3/ul (0-0.6); ABS Lymphocytes 0.8 10^3/ul (1.0-4.8); ABS Monocytes 0.4 10^3/ul (0-0.8); ABS Neutrophils 4.4 10^3/ul (1.5-7.7); Eosinophil % 2.8 %; Hematocrit 36 % (42-52); Hemoglobin 11.8 g/dL (14.0-18.0); Lymphocyte % 13.3 %; Mean Corpuscular HGB Conc 33 g/dL (31-36); Mean Corpuscular Hemoglobin 35 pg (27-31); Mean Corpuscular Volume 105 fL (80-94); Mean Platelet Volume 8.6 fL (7.4-10.4); Nucleated Red Blood Cells % 0.1; Platelet Count 178 10^3/uL (150-450); Red Blood Count 3.44 10^6 /uL (4.18-5.48); Red Cell Distribution Width 15 % (10-15); White Blood Count 5.8 10^3/uL (3.5-10.8)
[2021-11-09] MEDS ORDERED: Iohexol 350 (CONTRAST) 500 ML MDV IV ONE (18:27)
[2021-11-09 18:31] LABS: INR 1.93 (0.86-1.15)
[2021-11-09 18:46] LABS: High Sens Troponin Baseline 19 pg/mL (<20)
[2021-11-09 19:09] LABS: ALT 13 U/L (7-52); Albumin 3.3 g/dL (3.2-5.2); Albumin/Globulin Ratio 1.1 (1-3); Alkaline Phosphatase 84 U/L (35-149); Anion Gap 5 mmol/L (2-11); Blood Urea Nitrogen 20 mg/dL (6-24); CO2 Carbon Dioxide 24 mmol/L (22-32); Calcium 7.9 mg/dL (8.6-10.3); Chloride 105 mmol/L (101-111); Globulin 2.9 g/dL (2-4); Glucose 66 mg/dL (70-100); Sodium 134 mmol/L (135-145); Total Protein 6.2 g/dL (6.4-8.9); eGFR CKD-EPI 61.2 (>60)
[2021-11-09 19:33] LABS: Activated Partial Thrombo Time 37.6 seconds (26.0-38.0)
[2021-11-09 19:47] LABS: Cholesterol 148 mg/dL; HDL Cholesterol 48.6 mg/dL; LDL Cholesterol 81 mg/dL; Triglycerides 94 mg/dL
[2021-11-09 20:02] LABS: High Sensitivity Troponin 1 Hr 21 pg/mL (<20); Potassium Redraw 4.5 mmol/L (3.5-5.0)
[2021-11-09] MEDS ORDERED: Lorazepam PYXIS KEY PRN (21:03)
[2021-11-09] MEDS ORDERED: LORazepam 2 mg VIAL 1 ml IV PUSH ONE (21:03)
[2021-11-09] MEDS: Enoxaparin 40 MG/0.4 ML SYR SUBCUT SCH (23:06)
[2021-11-10 02:39] LABS: Urine Appearance Clear; Urine Bilirubin Negative (Negative); Urine Blood 1+ (Negative); Urine Color Yellow; Urine Glucose Negative (Negative); Urine Ketones Negative (Negative); Urine Nitrite Negative (Negative); Urine Protein Negative (Negative); Urine Specific Gravity 1.023 (1.002-1.030); Urine Urobilinogen Negative (Negative)
[2021-11-10 02:57] LABS: Urine Bacteria Absent (Absent); Urine Red Blood Cell 1+(3-5/hpf) (Absent); Urine White Blood Cell Trace(0-5/hpf) (Absent)
[2021-11-10 03:20] LABS: Magnesium 2.1 mg/dL (1.9-2.7)
[2021-11-10 06:03] LABS: ABS Basophils 0.1 10^3/ul (0-0.2); ABS Eosinophils 0.2 10^3/ul (0-0.6); ABS Lymphocytes 0.8 10^3/ul (1.0-4.8); ABS Monocytes 0.4 10^3/ul (0-0.8); ABS Neutrophils 3.7 10^3/ul (1.5-7.7); Eosinophil % 4.3 %; Hematocrit 34 % (42-52); Hemoglobin 11.5 g/dL (14.0-18.0); Lymphocyte % 15.2 %; Mean Corpuscular HGB Conc 34 g/dL (31-36); Mean Corpuscular Hemoglobin 35 pg (27-31); Mean Corpuscular Volume 105 fL (80-94); Mean Platelet Volume 7.8 fL (7.4-10.4); Platelet Count 177 10^3/uL (150-450); Red Blood Count 3.25 10^6 /uL (4.18-5.48); Red Cell Distribution Width 14 % (10-15); White Blood Count 5.2 10^3/uL (3.5-10.8)
[2021-11-10 06:38] LABS: C Reactive Protein 19.55 mg/L (<8.01); Calcium 8.7 mg/dL (8.6-10.3); Potassium 4.3 mmol/L (3.5-5.0); eGFR CKD-EPI 58.8 (>60)
[2021-11-10] MEDS ORDERED: Perflutren Lipid Microsphere 3 ML VIAL ONE (08:20)
[2021-11-10] MEDS ORDERED: Tiotropium Brom/Olodaterol MDI INH SCH (09:00)
[2021-11-10] MEDS: Cholecalciferol (VIT D3) 1,000 unit TAB PO SCH (10:07)
[2021-11-10] MEDS: Multivitamins/Minerals TAB PO SCH (10:08)
[2021-11-10 12:45] LABS: Erythrocyte Sed Rate 39 mm/Hr (0-19)
[2021-11-10] MEDS ORDERED: Lorazepam PYXIS KEY PRN (21:13)
[2021-11-10] MEDS ORDERED: LORazepam 2 mg VIAL 1 ml IV PUSH ONE (21:13)
[2021-11-10] MEDS: Enoxaparin 40 MG/0.4 ML SYR SUBCUT SCH (21:33)
[2021-11-11 05:56] LABS: ABS Basophils 0.1 10^3/ul (0-0.2); ABS Eosinophils 0.2 10^3/ul (0-0.6); ABS Lymphocytes 0.8 10^3/ul (1.0-4.8); ABS Monocytes 0.5 10^3/ul (0-0.8); ABS Neutrophils 3.9 10^3/ul (1.5-7.7); Eosinophil % 2.9 %; Hematocrit 36 % (42-52); Mean Corpuscular HGB Conc 34 g/dL (31-36); Mean Corpuscular Hemoglobin 35 pg (27-31); Mean Corpuscular Volume 105 fL (80-94); Mean Platelet Volume 8.1 fL (7.4-10.4); Platelet Count 181 10^3/uL (150-450); Red Cell Distribution Width 15 % (10-15); White Blood Count 5.4 10^3/uL (3.5-10.8)
[2021-11-11 06:31] LABS: Magnesium 1.8 mg/dL (1.9-2.7); Potassium 4.4 mmol/L (3.5-5.0); eGFR CKD-EPI 68.1 (>60)
[2021-11-11 08:36] VITALS: BP 113/68
[2021-11-11] MEDS: Cholecalciferol (VIT D3) 1,000 unit TAB PO SCH (10:07)
[2021-11-11] MEDS: Multivitamins/Minerals TAB PO SCH (10:07)
== END 2021-11-11 10:25 ==
LOC: ED 17:35 → EDHOLD 20:08 → INTOOBSV 20:08 → MEDTELE 22:25
PROVIDERS: ADMIT Student in an Organized Health Care Education/Training Program; ATTEND Student in an Organized Health Care Education/Training Program